=== PATIENT | male | born 1940 | race Caucasian/White ===

== ENCOUNTER 2018-03-14 14:46 | Inpatient (IN) | payer MEDICARE, OTHER ==
[2018-03-14] MEDS ORDERED: SUCRALFATE 1 GM/10 ML 1 GM UD PO ONE (15:07)
[2018-03-14] MEDS ORDERED: THIAMINE HCL 100 MG TAB PO ONE (15:27)
[2018-03-14] MEDS ORDERED: FOLIC ACID 1 MG TAB ONE (15:27)
--- NOTE | 2018-03-14 15:33 | RAD ---
EXAM DESCRIPTION: Chest,1 View CLINICAL HISTORY: wt loss abn COMPARISON: November 20, 2012 IMPRESSION: Single AP portable upright view of the chest shows mild enlargement of the cardiac silhouette with left ventricular contour. No pulmonary vascular congestion. There has been interval sternotomy with interval placement of left subclavian dual-lead transvenous cardiac pacer defibrillator. Lungs are normally aerated and clear. No obvious pleural effusion or pneumothorax is seen. Electronically signed by: Vaibhav Early MD 03/14/2018 3:32 PM CDT
[2018-03-14] MEDS: THIAMINE HCL 100 MG TAB PO ONE (15:34)
[2018-03-14] MEDS: FOLIC ACID 1 MG TAB PO ONE (15:34)
[2018-03-14] MEDS ORDERED: POTASSIUM CHLORIDE ELIXIR 20 MEQ/15 ML UD PO ONE (15:52)
[2018-03-14] MEDS ORDERED: POTASSIUM CHLORIDE INJ 40 MEQ 40 MEQ in SODIUM CHLORIDE 0.9% 250ML 250 ML IVPB ONE (15:53)
[2018-03-14] MEDS ORDERED: SODIUM CHLORIDE 0.9% 250ML 250 ML ONE (15:56)
[2018-03-14] MEDS ORDERED: POTASSIUM CHLORIDE 40mEq 20ML VIAL ONE (15:56)
[2018-03-14] MEDS ORDERED: MAGNESIUM SULFATE PREMIX 2GM 2 GM in PREMIX BAG 1 BAG IVPB ONE (16:12)
[2018-03-14] MEDS ORDERED: MAGNESIUM SULFATE PREMIX 2GM 50 ML IVPB ONE (16:25)
[2018-03-14] MEDS ORDERED: cefTRIAXone SODIUM 1 GM in SODIUM CHL 0.9% 50ML MIN-BAG+ 50 ML IVPB ONE (17:50)
[2018-03-14] MEDS ORDERED: cefTRIAXone SODIUM 1 GM VIAL ONE (18:01)
[2018-03-14] MEDS ORDERED: SODIUM CHL 0.9% 50ML MIN-BAG+ 50 ML IVPB ONE (18:02)
--- NOTE | 2018-03-14 18:09 | CT ---
PROCEDURE: Head HISTORY: confusion, falls, weakness, wt loss abn Indication: Same as above Comparison: None Technique: CT of the head was done without intravenous contrast was done in the orthogonal planes. This exam was performed according to our departmental dose-optimization program, which includes automated exposure control, adjustment of the mA and/or KV according to the patient's size and/or use of iterative reconstruction technique. FINDINGS: There is no intracranial hemorrhage, midline shift mass effect or acute focal infarct. There is prominence of the sylvian fissures and the cortical sulci reflecting age related volume loss. There is periventricular and deep white matter low attenuation, most likely related to small vessel white matter ischemic disease. If clinical concern exists regarding an acute ischemic/vascular pathology being responsible for patient's symptomatology, an MRI of the brain is more sensitive than the current study, in ruling out such a possibility. There is good ruiz/white matter differentiation. The ventricular system is normal. The mastoid air cells are unremarkable . The paranasal sinuses are unremarkable . There is no visualization of acute fractures involving the calvarium or the skull base. IMPRESSION: There is no acute intracranial abnormality. Age related and chronic involutional changes are seen. Electronically signed by: Jermaine Feng MD 03/14/2018 6:07 PM CDT Workstation: [id number]
--- NOTE | 2018-03-14 18:13 | CT ---
PROCEDURE: Lumbar Spine HISTORY: back pain Indication: Fall and back pain Comparison: None Technique: CT of the lumbar spine was done without intravenous contrast in the axial, sagittal and coronal planes. This exam was performed according to our departmental dose-optimization program, which includes automated exposure control, adjustment of the mA and/or KV according to the patient's size and/or use of iterative reconstruction technique. FINDINGS: There is no CT evidence of acute lumbar spinal fractures or dislocations. There is also evidence of moderate amount of multilevel degenerative change, including osteophyte formation, vacuum disc phenomena, reduction in the intervertebral disc spaces, endplate degenerative changes and facet arthropathy. A levoscoliotic curvature of the lumbar spine is noted There is limited evaluation for acute or chronic intervertebral disc herniations or protrusions given the limitation of lack of intrathecal contrast. The prevertebral and the paravertebral soft tissues appear unremarkable. Surgical rodolfo are seen in the right paravertebral region and in the right renal region There is no gross evidence of epidural hematoma or paraspinal soft tissue fluid collections. The remainder of the visualized surrounding subcutaneous soft tissues and muscle structures are grossly unremarkable. The sagittal reconstructed images demonstrate normal alignment The coronal reconstructed images demonstrate normal alignment. IMPRESSION: Negative for acute lumbar spine bony trauma. Significant multilevel degenerative changes seen in the lumbar spine Electronically signed by: Jermaine Feng MD 03/14/2018 6:12 PM CDT Workstation: [id number]
--- NOTE | 2018-03-14 18:15 | CT ---
PROCEDURE: Thoracic Spine Clinical History: back pain Indication: Trauma and back pain Comparison: CT of the lumbar spine done concurrently Technique: CT of the thoracic spine was done without intravenous contrast in the axial, sagittal and coronal planes. This exam was performed according to our departmental dose-optimization program, which includes automated exposure control, adjustment of the mA and/or KV according to the patient's size and/or use of iterative reconstruction technique. Findings: There is no CT evidence of acute thoracic spinal fractures or dislocations. There is also evidence of moderate amount of multilevel degenerative change, including osteophyte formation, reduction in the intervertebral disc spaces, endplate degenerative changes and facet arthropathy. The costovertebral junctions are intact . The visualized lung de leon are unremarkable . The sagittal reconstructed images demonstrate normal alignment The coronal reconstructed images demonstrate normal alignment. There is limited evaluation for acute or chronic intervertebral disc herniation or protrusions given the limitation of lack of intrathecal contrast. The prevertebral and the paravertebral soft tissues appear unremarkable. There is no gross evidence of epidural hematoma or paraspinal soft tissue fluid collections. The remainder of the visualized surrounding subcutaneous soft tissues and muscle structures are grossly unremarkable. Impression: Negative for acute thoracic spine bony trauma Multilevel degenerative changes seen in the thoracic spine Electronically signed by: Jermaine Feng MD 03/14/2018 6:14 PM CDT Workstation: [id number]
--- NOTE | 2018-03-14 18:33 | ED.PDOC ---
History of Present Illness - General Chief Complaint: General Time Seen by Provider: 03/14/18 14:52 Source: patient Exam Limitations: no limitations - History of Present Illness Initial Comments: The patient is a 77-year-old male presenting to the emergency room secondary to progressive weight loss over the last 3 months to total approximately 40 pounds according to him. He has also been getting significantly weaker over the last week and had a couple of falls over the last few days. Additionally he has been having some mild dysuria over the last 3 days. He does have a significant cardiac history and has had a partial nephrectomy in the very distant past. He is pleasant and cooperative but mentation does appear to be a little bit slow. He does have a mild intention tremor. He has apparently a daily drinker. He denies any fevers. No syncope but questionable near syncope. No focal neurological changes. He does see a bedspread folder in [place]. No chest pain and no shortness of breath. No swelling.he does report poor intake of food secondary to just not being hungry. He reports that over the last couple of weeks he has been having some burning in his stomach when he would try to eat or drink alcohol.he does have bruising over his sacrum and bruising over his mid thoracic spine from a fall backwards a couple of days ago. No obvious step-off or deformity otherwise. There is only a mild abrasion over those areas. No deep ulceration at those sites.. Timing/Duration: unsure Severity: moderate Improving Factors: nothing Worsening Factors: movement Associated Symptoms: loss of appetite, malaise, weakness Allergies/Adverse Reactions: Allergies NO KNOWN ALLERGY Allergy (Unverified 11/20/12 20:35) Review of Systems - Review of Systems Constitutional: States: malaise, weakness - generalized EENTM: States: no symptoms reported Respiratory: States: no symptoms reported Cardiology: States: no symptoms reported Gastrointestinal/Abdominal: States: no symptoms reported Genitourinary: States: dysuria, frequency Musculoskeletal: States: back pain - from the fall Skin: States: see HPI Neurological: States: tremors, weakness - generalized Endocrine: States: unexplained weight loss All other Systems: No Change from Baseline Past Medical History (General) - Patient Medical History Hx of COPD: Yes Hx Pacemaker: Yes Hx Hypertension: Yes Surgical History: appendectomy, coronary bypass surgery, other - Vaccination History Hx Tetanus, Diphtheria Vaccination: - allergic Family Medical History - Family History Mother Family History: No Known Physical Exam - Physical Exam General Appearance: Alert, No apparent distress Eye Exam: bilateral normal Ears, Nose, Throat: hearing grossly normal, normal ENT inspection, normal pharynx Neck: full range of motion, supple Respiratory: lungs clear, normal breath sounds, no respiratory distress, no accessory muscle use Cardiovascular/Chest: normal peripheral pulses, no edema, other - regular rate Peripheral Pulses: radial,right: 2+, radial,left: 2+, dorsalis pedis,right: 2+, dorsalis pedis,left: 2+ Gastrointestinal/Abdominal: non tender, soft Rectal Exam: deferred, other - bruising is apparent over the sacrum from the fall Back Exam: other - bruising is apparent over the spinous processes of T5-T8 Extremity: normal range of motion, non-tender, no pedal edema, no calf tenderness, normal capillary refill 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, alert, oriented x 3 - flat affect, other - he does have something of an intention tremor Skin Exam: normal color Comments: Vital Signs - 24 hr 03/14/18 03/14/18 03/14/18 14:47 14:48 17:05 Temperature 97.7 F 97.7 F Pulse Rate [ 59 L 59 L 60 left brachial] Respiratory 20 20 18 Rate Blood Pressure 141/93 132/68 [left brachial] O2 Sat by Pulse 99 99 99 Oximetry 03/14/18 03/14/18 17:10 17:17 Temperature Pulse Rate [ 60 60 left brachial] Respiratory 20 18 Rate Blood Pressure 123/63 138/68 [left brachial] O2 Sat by Pulse 99 100 Oximetry Progress - Progress Progress: 03/14/18 18:38 the patient is a 77-year-old male presenting to the emergency room secondary to progressive deterioration over the last 3 months at least. The patient has bruising over his back and pain from the fall but does not appear to have any significant fractures based on imaging. Head CT is negative for any cause for recurrent falling. The patient does have acute renal failure as demonstrated by laboratory work likely contributed to by the hydrochlorothiazide. He will need gentle rehydration for this. He does have significant hypokalemia and hypomagnesemia that are likely symptomatic for him at this point. He has received his first doses of both. He will need reevaluation in the morning once electrolytes are corrected to see how functional he is getting around. The patient does have an elevated MCV and mild anemia. He would likely benefit from testing for B12 and folate deficiency. The patient has been given a dose of folic acid and thiamine here. He does drink on a daily basis and he does need to be monitored for any withdrawal symptoms. He does have a markedly elevated BNP however in light of the acute renal failure that is difficult to interpret. At this point there are no definitive signs of a CHF exacerbation with this patient clinically, unless the weakness were attributed to that. certainly alcohol intake is not helping with hiscardiac function in the long-term. His blood pressure should be controlled. He will likely be able to follow-up with his bedspread folder as an outpatient once he is discharged from here for his acute problems. He does have urinary tract infection and is being started on Rocephin. urine culture is being performed. Once his electrolytes are little more stabilized, ciprofloxacin can be started. - Results/Orders Results/Orders: chest x-ray shows very mild cardiomegaly but no obvious fluid overload. No significant infiltrates or mass. CT scan of the thoracic and lumbar spine show no evidence of any fracture or acute injury though there are chronic degenerative changes. cT scan of the head shows no evidence of any stroke, mass effect, hydrocephalus or hemorrhage. There are chronic senescent changes. 03/14/18 15:15 EKG STAT EKG shows a paced ventricular rhythm at 60 bpm. There is some left axis deviation. There is mild widening of QRS complex of course. Difficult to interpret otherwise. 03/14/18 15:20 BLOOD CULTURE Stat 03/14/18 16:35 URINE CULTURE W/COLONY COUNT Stat Laboratory Results - last 24 hr 03/14/18 03/14/18 03/14/18 15:20 15:20 15:20 WBC 6.0 RBC 3.26 L Hgb 12.0 L Hct 34.9 L MCV 106.9 H MCH 36.8 H MCHC 34.5 RDW 15.1 H Plt Count 103 L MPV 8.9 Absolute Neuts (auto) 3.60 Absolute Lymphs (auto) 1.70 Absolute Monos (auto) 0.60 Absolute Eos (auto) 0.00 Absolute Basos (auto) 0.00 Neutrophils % 60.0 Lymphocytes % 28.3 Monocytes % 10.4 H Eosinophils % 0.7 L Basophils % 0.6 PT 12.8 H INR 1.100 PTT (SP) 31.6 Sodium 138 Potassium 2.4 L* Chloride 94 L Carbon Dioxide 30 Anion Gap 16.4 BUN 25 H Creatinine 1.93 H BUN/Creatinine Ratio 13.0 Random Glucose 102 Serum Osmolality 280.3 Lactic Acid Calcium 9.5 Magnesium 1.3 L Total Bilirubin 1.7 H AST 62 H ALT 43 Alkaline Phosphatase 102 LD Total 140 Creatine Kinase 39 CK-MB (CK-2) 0.7 CK-MB (CK-2) % Not Reportable Troponin I 0.02 B-Natriuretic Peptide > 5000.0 H* Serum Total Protein 7.6 Albumin 3.9 Globulin 3.7 H Albumin/Globulin Ratio 1.1 Amylase 47 Lipase 34 Total PSA TSH 0.87 Urine Color Urine Appearance Urine pH Ur Specific Gorman Urine Protein Urine Glucose (UA) Urine Ketones Urine Blood Urine Nitrite Urine Bilirubin Urine Urobilinogen Ur Leukocyte Esterase Urine RBC Urine WBC Ur Epithelial Cells Amorphous Sediment Urine Bacteria 03/14/18 03/14/18 03/14/18 15:20 15:20 15:20 WBC RBC Hgb Hct MCV MCH MCHC RDW Plt Count MPV Absolute Neuts (auto) Absolute Lymphs (auto) Absolute Monos (auto) Absolute Eos (auto) Absolute Basos (auto) Neutrophils % Lymphocytes % Monocytes % Eosinophils % Basophils % PT INR PTT (SP) Sodium Potassium Chloride Carbon Dioxide Anion Gap BUN Creatinine BUN/Creatinine Ratio Random Glucose Serum Osmolality Lactic Acid 1.7 Calcium Magnesium Total Bilirubin AST ALT Alkaline Phosphatase LD Total Creatine Kinase CK-MB (CK-2) CK-MB (CK-2) % Troponin I B-Natriuretic Peptide Serum Total Protein Albumin Globulin Albumin/Globulin Ratio Amylase Lipase Total PSA Cancelled 1.56 TSH Urine Color Urine Appearance Urine pH Ur Specific Gorman Urine Protein Urine Glucose (UA) Urine Ketones Urine Blood Urine Nitrite Urine Bilirubin Urine Urobilinogen Ur Leukocyte Esterase Urine RBC Urine WBC Ur Epithelial Cells Amorphous Sediment Urine Bacteria 03/14/18 16:35 WBC RBC Hgb Hct MCV MCH MCHC RDW Plt Count MPV Absolute Neuts (auto) Absolute Lymphs (auto) Absolute Monos (auto) Absolute Eos (auto) Absolute Basos (auto) Neutrophils % Lymphocytes % Monocytes % Eosinophils % Basophils % PT INR PTT (SP) Sodium Potassium Chloride Carbon Dioxide Anion Gap BUN Creatinine BUN/Creatinine Ratio Random Glucose Serum Osmolality Lactic Acid Calcium Magnesium Total Bilirubin AST ALT Alkaline Phosphatase LD Total Creatine Kinase CK-MB (CK-2) CK-MB (CK-2) % Troponin I B-Natriuretic Peptide Serum Total Protein Albumin Globulin Albumin/Globulin Ratio Amylase Lipase Total PSA TSH Urine Color Jessica Urine Appearance Sl cloudy Urine pH 7.5 Ur Specific Gorman 1.015 Urine Protein 30 Urine Glucose (UA) Negative Urine Ketones 15 H Urine Blood Negative Urine Nitrite Negative Urine Bilirubin Moderate Urine Urobilinogen >= 8.0 H Ur Leukocyte Esterase Trace H Urine RBC 1-3 Urine WBC 30-40 H Ur Epithelial Cells 1-3 Amorphous Sediment 2+ Urine Bacteria 1+ Departure - Departure Clinical Impression: Cystitis, Hypokalemia, Hypomagnesemia, Recurrent falls, Alcohol abuse Acute renal failure Qualifiers: Acute renal failure type: unspecified Qualified Code(s): N17.9 - Acute kidney failure, unspecified Disposition: Admit Patient Condition: Fair Decision To Admit - Decistion To Admit Decision to Admit Reason: Medical Nature Decision to Admit Date: 03/14/18 Decision to Admit Time: 18:45
[2018-03-14] MEDS ORDERED: SODIUM CHLORIDE 0.9% 1000ML 500 ML IVS ONE (18:43)
--- NOTE | 2018-03-14 19:26 | HP ---
SUPERVISING PHYSICIAN: Marcellus Frye MD CHIEF COMPLAINT: Weakness with recent fall two days ago. HISTORY OF PRESENT ILLNESS: This is a 77-year-old male patient who lives at [facility]. He presented to the Emergency Room due to progressive weakness that has actually been going on about a year, but has worsened in the last several months. About two days ago, he actually bent forward to pick something up and he fell backwards onto his back. He is unsure if he lost consciousness, but he did not hit his head. He did scrape his lower back and has some back pain due to that fall. He also has lost about 40 pounds in the last three months. He does see Dr. Sanchez Bazzi in [place] as his primary care physician. He has a significant cardiac history with pacemaker insertion several years ago due to atrial fibrillation and he had a coronary artery bypass graft in the distant past. He had no complaints of chest pain or shortness of breath. He also has complaints of some dysuria and he does have a history of a partial nephrectomy in the past. There were also some complaints of some burning in his stomach, especially with eating or drinking. He also said his appetite has been very pour over the last four to five months. He does drink two to three alcoholic beverages a day. In the Emergency Room, he was evaluated and found to have a normal white count at 6 with a hemoglobin of 12 and hematocrit of 34.9. PT 12.8, INR 12.1, PT-T 31.6. Sodium 138, potassium 2.4, chloride 94, carbon dioxide 30, BUN 25, creatinine 1.93. His normal creatinine is about 1. Lactic acid 1.7, magnesium 1.3, calcium 9.5, total bilirubin 6.7, AST 62. His other liver enzymes were within normal limits. Cardiac enzymes were within normal limits. BNP was greater than 5000. He denies any history of congestive heart failure. Amylase 47, lipase 34. PSA 1.56 and TSH 0.87 His urinalysis was positive for urinary tract infection with 15 urine ketones, greater than 8 urine urobilinogen, trace urine leukocyte esterase and 30 to 40 WBCs. He was given fluids in the Emergency Room as well as some magnesium and potassium replacement. He was also started on Rocephin. Prior to his antibiotics, urine culture and blood cultures were done. He was given a dose of folic acid and thiamine. He was also given a dose of Carafate. Chest x-ray showed mild enlargement of the cardiac silhouette , no pulmonary vascular congestion. Head CT showed no acute intracranial abnormality with age-related and chronic involutional changes. His lumbar spine CT was negative for acute lumbar spine bony trauma. His thoracic spine CT was negative for acute thoracic spine bony fracture. I was called for admission to the hospital. PAST MEDICAL HISTORY: 1. Hypertension. 2. Coronary artery disease. 3. Atrial fibrillation. 4. Hypothyroidism. 5. Chronic obstructive pulmonary disease. 6. Gastroesophageal reflux disease. PAST SURGICAL HISTORY: 1. Pacemaker insertion. 2. Coronary artery bypass graft. 3. Partial nephrectomy. 4. Appendectomy. 5. Tonsillectomy. OUTPATIENT MEDICATIONS: Awaiting verification. ALLERGIES: TETANUS. FAMILY HISTORY: Unknown. SOCIAL HISTORY: He lives at [facility]. He has four children and one step- child. He has a very distant history of smoking tobacco. He does drink two to three alcoholic beverages daily. There is no history of illicit drug use. REVIEW OF SYSTEMS: GENERAL: Positive for weakness, weight loss, malaise. HEENT: Negative for sinus symptoms, ear pain, vision changes or sore throat. RESPIRATORY: Negative for wheezing, coughing or shortness of breath. CARDIAC: Negative for chest pain, palpitations or tachycardia. GASTROINTESTINAL: Poor food intake as well as generalized stomach pain and burning. No nausea or vomiting. GENITOURINARY: Positive for dysuria, polyuria. Negative for hematuria. MUSCULOSKELETAL: Positive for back pain and hip pain from his fall. SKIN: Positive for abrasions to the sacrum. NEUROLOGIC: Positive for tremors, weakness and questionable syncope. ENDOCRINE: Positive for unexplained weight loss of 40 pounds in three months. PHYSICAL EXAMINATION: VITAL SIGNS: Afebrile. Heart rate 60. Blood pressure 140/64. Respiratory rate 16. O2 saturation 97% on room air. GENERAL: This is a 77-year-old male patient who is lying in his hospital bed. He is no acute distress. HEENT: Normocephalic, atraumatic. Pupils are equal and reactive. Oropharynx is clear. NECK: Supple without mass. No discernible jugular venous distention. RESPIRATORY: Essentially clear to auscultation bilaterally. CHEST: There is equal rise and fall of the chest with inspiration and expiration. CARDIOVASCULAR: Regular rate and rhythm. 100% paced rhythm on the nuclear monitoring technician. GASTROINTESTINAL: Abdomen is soft, nondistended. Mild diffuse tenderness. Bowel sounds are positive. EXTREMITIES: No cyanosis, clubbing or edema. Bilateral pedal pulses are +2. SKIN: He has some bruising and some mild abrasions over the sacral area as well as along the thoracic spine. NEUROLOGIC: Awake, alert and oriented times three. LABORATORY: Labs and films are as per history of present illness. IMPRESSION: 1. Acute renal failure with creatinine 1.93. His baseline creatinine is 0.9 to 1. 2. Urinary tract infection. 3. Electrolyte imbalance, mainly hypomagnesemia and hypokalemia. 4. Dehydration. 5. Altered mental status. 6. Gastritis. 7. Unknown weight loss of 40 pounds in three months. 8. ETOH abuse. 9. History of atrial fibrillation with pacemaker. 10. Coronary artery disease. 11. Chronic obstructive pulmonary disease. 12. Recent same-level fall with questionable loss of consciousness. Bruising and abrasions on the sacrum. PLAN: We will admit the patient to the hospital. I will give him fluids overnight. Recheck his lab in the morning including magnesium and B12. I have given him a proton pump inhibitor for ulcer prophylaxis as well as some Carafate. Lovenox for DVT prophylaxis. We will do neuro checks q.4h. We will have p.r.n. breathing treatments. I will continue the Rocephin and follow his cultures as they become available. I will restart his home medications as soon as those are verified. I have given him some Ativan in case of alcohol withdrawal and we will monitor that closely. Otherwise, we will continue to monitor the patient closely and treat appropriately. #[id number] [facility]
[2018-03-14] MEDS ORDERED: SODIUM CHLORIDE 0.9% (FLUSH) 10 ML SYG IV PRN (19:54)
[2018-03-14] MEDS ORDERED: SODIUM CHLORIDE 0.9% 1000ML 1,000 ML IVS PRN (19:57)
[2018-03-14] MEDS ORDERED: ENOXAPARIN SODIUM 40 MG/0.4 ML SYG SUBCU SCH (21:00)
[2018-03-14] MEDS ORDERED: METOPROLOL SUCCINATE XL 25 MG TAB PO SCH (21:00)
[2018-03-14] MEDS ORDERED: LEVALBUTEROL NEBS 1.25 MG/3 ML VIAL NEB PRN (21:28)
[2018-03-14] MEDS: SODIUM CHLORIDE 0.9% (FLUSH) 10 ML SYG IV SCH (21:43)
[2018-03-14] MEDS: IV SET AND CAP CHANGE INJ INJ SCH (21:43)
[2018-03-15] MEDS: PANTOPRAZOLE SODIUM IV 40 MG VIAL IV SCH (06:30)
[2018-03-15] MEDS: SUCRALFATE 1 GM/10 ML 1 GM UD PO SCH ×4 (06:31→21:20)
[2018-03-15] MEDS ORDERED: POTASSIUM CHLORIDE 20 MEQ TAB PO ONE (08:08)
[2018-03-15] MEDS ORDERED: traMADol HCL 50 MG TAB ONE (08:52)
[2018-03-15] MEDS: SODIUM CHLORIDE 0.9% (FLUSH) 10 ML SYG IV SCH ×2 (08:59→21:20)
[2018-03-15] MEDS ORDERED: ALLOPURINOL 300 MG TAB PO SCH (09:00)
[2018-03-15] MEDS ORDERED: MULTIPLE VITAMIN INJ 10 ML, FOLIC ACID INJ 1 MG in SODIUM CHLORIDE 0.9% 1000ML 1,000 ML IVS SCH (09:00)
[2018-03-15] MEDS: traMADol HCL 50 MG TAB PO PRN (09:16)
--- NOTE | 2018-03-15 13:17 | PN ---
SUPERVISING PHYSICIAN: Marcellus Frye MD DATE: 03/15/18 SUBJECTIVE: The patient is lying quietly in bed. He complains of abdominal pain to the epigastric and left upper quadrant area of his abdomen. He denies any nausea, vomiting, chest pain or shortness of breath. He just feels weak and is having a very difficult time sleeping. He has a very flat affect and admits he is depressed but does not know why. OBJECTIVE: VITAL SIGNS: Afebrile. Heart rate 60. Blood pressure 130/76. Respiratory rate 16. O2 saturation 99% on room air. RESPIRATORY: Essentially clear to auscultation bilaterally. CARDIAC: Regular rate and rhythm. 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 GASTROINTESTINAL: Abdomen is soft, nondistended. He is moderately to the epigastric and left upper quadrant areas of his abdomen. EXTREMITIES: No cyanosis, clubbing or edema. NEUROLOGIC: Awake, alert and oriented times three. LABORATORY: WBCs 3.8, hemoglobin 11.6, hematocrit 33.8. Sodium 139, potassium 3.1, chloride 102, carbon dioxide 26, BUN 20, creatinine 1.54, calcium 8.7, magnesium 1.8, bilirubin 1.6, AST 54. Serum total protein 6.3, albumin 3.1. Urine culture pending. Preliminary blood cultures are negative to date. All other labs and films have been reviewed via the EMR. ASSESSMENT: 1. Acute renal failure with creatinine on admission of 1.93. His baseline creatinine is 0.9 to 1. Creatinine today is 1.54. 2. Urinary tract infection, awaiting culture results. 3. Electrolyte imbalance, improved. He still is slightly hypokalemic. 4. Dehydration, improved with IV fluids. 5. Altered mental status. 6. Gastritis. 7. Unknown weight loss of 40 pounds in three months. 8. ETOH abuse. 9. History of atrial fibrillation with pacemaker. 10. Coronary artery disease. 11. Chronic obstructive pulmonary disease. 12. Recent same-level fall with questionable loss of consciousness. Bruising and abrasions on the sacrum. 13. Depression. PLAN: We will continue present supportive care. I have given him some oral potassium replacement. We will discontinue his IV fluids after the present bag. He had some complaints of pain earlier and we ordered tramadol. I have also done a daily folic acid and thiamine, as well as Celexa for depression. I will repeat his lab in the morning. Due to his weight loss and the abdominal pain, I am going to do a CT of the chest, abdomen and pelvis tomorrow morning. He will be NPO at midnight except for medications. I am also adding Restoril for insomnia. He will need close followup with his primary care physician, Dr. Sanchez Bazzi in [place]. He previous had [facility] and he has agreed he will use [facility] on discharge. I have also ordered physical therapy consult to evaluate for safety. We will continue to monitor the patient closely and follow as needed. Dr. Frye is the collaborating physician and available for consultation. #[id number] [facility]
[2018-03-15] MEDS ORDERED: SODIUM CHL 0.9% 50ML MIN-BAG+ 50 ML IVPB ONE (14:07)
[2018-03-15] MEDS ORDERED: cefTRIAXone SODIUM 1 GM VIAL ONE (14:08)
[2018-03-15] MEDS: THIAMINE HCL 100 MG TAB PO ONE (14:23)
[2018-03-15] MEDS: FOLIC ACID 1 MG TAB PO ONE (14:23)
[2018-03-15] MEDS: CITALOPRAM HBR 20 MG TAB PO SCH (14:24)
[2018-03-15] MEDS ORDERED: cefTRIAXone SODIUM 1 GM in SODIUM CHL 0.9% 50ML MIN-BAG+ 50 ML IVPB SCH (15:00)
[2018-03-15] MEDS: TEMAZEPAM 15 MG CAP PO PRN (21:34)
[2018-03-16] MEDS: PANTOPRAZOLE SODIUM IV 40 MG VIAL IV SCH (06:14)
[2018-03-16] MEDS: SUCRALFATE 1 GM/10 ML 1 GM UD PO SCH ×4 (06:36→21:16)
--- NOTE | 2018-03-16 09:40 | CT ---
EXAM DESCRIPTION: CHEST WITH CONTRAST CT ABDOMEN AND PELVIS WITHOUT AND WITH CONTRAST CLINICAL HISTORY: 77 years, Male, wt loss COMPARISON: Previous CT abdomen October 16, [address] chest June 25, 2017 TECHNIQUE: Thin-section noncontrast axial CT images of the chest, abdomen and pelvis are obtained according to our protocol. Reconstructed MPR images are created and reviewed as well. For the postcontrast images, routine adult dose of nonionic iodinated contrast was administered intravenously. FINDINGS: CT chest Lungs: No consolidating pulmonary infiltrate or groundglass infiltrate. Moderate subpleural fibrotic changes are seen in both lungs with denser area near the upper right major fissure extending anteriorly along the minor fissure suggesting pleural scarring. This is triangular in shape to linear in shape and not thought likely to represent a malignant process. The same findings were present previously on CT of the chest June 25, 2017 suggesting a chronic process No worrisome pulmonary mass or nodule. Coronal reformatted lung window images confirm chronic-appearing pulmonary and pleural fibrotic changes. Pulmonary fibrosis can be idiopathic or may be related to connective tissue diseases (scleroderma, mixed connective tissue disease or rheumatoid arthritis) or pneumoconiosis (asbestosis). Clinical correlation recommended. Mediastinum: Lymph nodes are normal in size. Previous median sternotomy. Normal vascular contours. Heart size is large with no pericardial effusion. There is extensive coronary arterial calcification. Cardiac pacer is in place. No significant arthritic changes in the shoulders. No esophageal dilatation. The heart is quite large. Aorta is calcified without focal aneurysm or dissection. Normal enhancement of pulmonary arteries. Chest wall/axilla: No mass or adenopathy. Lower neck/supraclavicular: No mass or adenopathy. CT abdomen Precontrast images show unremarkable appearance of the liver, spleen, pancreas, adrenal glands and left kidney. Surgical changes or coils in the right kidney with central scarring. After IV contrast, there is normal enhancement of the liver and spleen and pancreas. Mild thinning of the left renal cortex is seen which otherwise enhances normally. Scarring in the midportion of the right kidney is noted. Other areas show normal cortical enhancement. Normal left adrenal gland. Right adrenal gland appears nodular. Small rim calcified mass medial to the upper pole the right kidney may be related to previous surgery. This appears benign. Compared to previous studies, no change is seen here. Surgical clips are seen behind the inferior vena cava. Stomach wall thickness is prominent thought to be due to incomplete distention. CT pelvis Precontrast images through the pelvis show no stones in the distal ureters or bladder. Prostate is mildly prominent with some internal calcification. No inguinal or lower pelvic adenopathy. No inflammation around the sigmoid colon or cecum or terminal ileum. After IV contrast there is normal enhancement of the pelvic vessels. No abnormal enhancement of the prostate or bladder wall. Bladder wall thickness is mildly prominent. No inflammation around the rectum or sigmoid colon. The appendix is not identified. No inflammation around the right colon or terminal ileum. Coronal and sagittal reformatted images show advanced degenerative changes of the lower lumbar spine with neural foraminal narrowing. Coronal images show mild degenerative levoscoliosis of the lower thoracic and lumbar spine. Lucency in the right femoral neck is noted, indeterminate. No rim sclerosis to suggest benign nature. This measures 1.4 cm on the axial images, unchanged compared to previous study in October 2017. Patient also had an earlier CT of the abdomen July 18, 2012. Similar lucency was seen in the right femur at that time. Without private branch exchange service advisor this period, benign lesion is thought most likely. IMPRESSION: CT chest Pleural and pulmonary fibrotic changes. No acute process. CT abdomen No acute upper abdominal process. Surgical changes of the right kidney. CT pelvis No acute pelvic process. This exam was performed according to our departmental dose-optimization program, which includes automated exposure control, adjustment of the mA and/or kV according to patient size and/or use of iterative reconstruction technique. Total DLP equals 3324.24 mGycm. Electronically signed by: Fabian Feliciano MD 03/16/2018 9:39 AM CDT
[2018-03-16] MEDS: SODIUM CHLORIDE 0.9% (FLUSH) 10 ML SYG IV SCH ×2 (09:50→21:16)
[2018-03-16] MEDS: CITALOPRAM HBR 20 MG TAB PO SCH (10:18)
[2018-03-16] MEDS ORDERED: SODIUM CHL 0.9% 50ML MIN-BAG+ 50 ML IVPB ONE ×2 (14:12→21:57)
[2018-03-16] MEDS ORDERED: CEFEPIME 2 GM VIAL IVPB ONE ×2 (14:12→21:57)
[2018-03-16] MEDS ORDERED: THIAMINE HCL INJ 100 MG/ML VIAL ONE (14:12)
[2018-03-16] MEDS ORDERED: SODIUM CHLORIDE 0.9% 1000ML 1,000 ML ONE (14:12)
[2018-03-16] MEDS ORDERED: MULTIPLE VITAMIN 10 ML VIAL ONE (14:13)
[2018-03-16] MEDS: CEFEPIME 2 GM in SODIUM CHL 0.9% 50ML MIN-BAG+ 50 ML IVPB SCH (14:23)
[2018-03-16] MEDS: FOLIC ACID 1 MG TAB PO SCH (14:29)
[2018-03-16] MEDS: MULTIPLE VITAMIN INJ 10 ML, THIAMINE HCL INJ 100 MG in SODIUM CHLORIDE 0.9% 1000ML 1,00... IVS SCH (14:55)
--- NOTE | 2018-03-16 23:05 | PN ---
DATE: 03/16/18 SUPERVISING PHYSICIAN: Marcellus Frye M.D. SUBJECTIVE: The patient is resting in bed. He appears to be comfortable. Notes that he is still having some back pain but denies any additional abdominal pains. He has not had any nausea or vomiting or diarrhea through the night. OBJECTIVE: VITAL SIGNS: temperature 97.8, pulse 59, blood pressure 155/68, respirations 18, satting 96% on room air. I's and O's show a balance of 120 positive with 820 in, 700 out. He has had 1 bowel movement. Weight is 70.5 kg. CHEST: Lungs were clear to auscultation bilaterally. HEART: Regular rate and rhythm. ABDOMEN: Soft, non-tender. Positive bowel sounds. EXTREMITIES: No clubbing, cyanosis or edema. NEUROLOGIC: He is alert and oriented times three. LABORATORY: White count 4,800, hemoglobin 11,600, hematocrit 33.9, platelet count 73,000. RBC indices indicate a macrocytic/hyperchromic presentation. Chemistries show a persistent hypokalemia but improved. It is up to 3.5. Creatinine is down to 1.34, BUN 17, calcium 8.8, magnesium is down again at 1.6. AST is improving, it is down to 51, ALT and alkaline phosphatase are both normal. MICROBIOLOGY: Urine culture is pending. He has 1 positive blood culture, aerobic bottle that showed gram variable coccobacilli. All other bottles remain negative at 48 hours. RADIOLOGY: Abdominal/pelvis CT with contrast per radiology interpretation showed pleural and pulmonary fibrotic changes. No acute process. No acute abdominal process noted. Post surgical changes of the right kidney. CT of the pelvis shows no pelvic process. CT of the chest again showed pleural and pulmonary fibrotic changes. No acute process. ASSESSMENT: 1. Acute renal failure with creatinine of 1.93 on admission with a baseline creatinine noted to be between 0.9 and 1 with improving creatinine level felt to be secondary to prerenal azotemic state from dehydration, improved with fluids. 2. Urinary tract infection with culture results continuing to be pending. 3. Gram negative coccobacilli bacteremia with final cultures pending with the patient showing to be clinically stable on current antibiotic regimen. 4. Electrolyte imbalance with hypokalemia showing improvement with replacement. 5. Dehydration, improved with IV fluids. 6. Altered mental status secondary to underlying worsening renal function exacerbated by the urinary tract infection, improving with treatment. 7. Gastritis secondary to chronic alcohol abuse. 8. Unintentional weight loss of 40 pounds in the last 3 months, uncertain etiology with no acute findings on CT of the chest, abdomen and pelvis. 9. Chronic alcohol abuse. 10. History of atrial fibrillation with pacemaker. 11. Coronary artery disease. 12. Chronic obstructive pulmonary disease with no current exacerbation. 13. Recent same-level fall with questionable loss of consciousness with multiple bruises and abrasions on the sacrum with no acute findings on CT or radiographic studies. 14. Depression. PLAN: Will continue with antibiotics today, but given the positive blood culture with the patient showing clinically to be stable, will add Cefepime and drop the Rocephin, and await those final blood culture results. Will continue with an additional 24 to 48 hours of hospitalization given the positive blood cultures and bacteremia awaiting those final culture results. As soon as those results are available we can target antibiotic therapy and further determine treatment course. I will go ahead and start him on a banana bag with thiamine today as well as posterior folic acid. He has been up with Physical Therapy with recommendations for home health physical therapy once discharged which is to be arranged through [facility]. As soon as the cultures are available, will need to again target antibiotic therapy accordingly. Hopefully will be able to discharge the patient as he does remain clinically stable. Until discharge, will continue to monitor and treat appropriately. #[id number] [facility]
[2018-03-17] MEDS: CEFEPIME 2 GM in SODIUM CHL 0.9% 50ML MIN-BAG+ 50 ML IVPB SCH ×2 (01:48→13:43)
[2018-03-17] MEDS: PANTOPRAZOLE SODIUM IV 40 MG VIAL IV SCH (06:36)
[2018-03-17] MEDS: SUCRALFATE 1 GM/10 ML 1 GM UD PO SCH ×4 (06:37→20:39)
[2018-03-17] MEDS: FOLIC ACID 1 MG TAB PO SCH (09:10)
[2018-03-17] MEDS: traMADol HCL 50 MG TAB PO PRN ×2 (09:11→18:36)
[2018-03-17] MEDS: CITALOPRAM HBR 20 MG TAB PO SCH (09:11)
[2018-03-17] MEDS: SODIUM CHLORIDE 0.9% (FLUSH) 10 ML SYG IV SCH ×2 (09:12→21:41)
[2018-03-17] MEDS ORDERED: POTASSIUM CHLORIDE 20 MEQ TAB PO SCH (09:30)
[2018-03-17] MEDS ORDERED: MAGNESIUM SULFATE PREMIX 2GM 2 GM in PREMIX BAG 1 BAG IVPB SCH (09:30)
[2018-03-17] MEDS ORDERED: MAGNESIUM SULFATE PREMIX 2GM 50 ML IVPB ONE (09:59)
[2018-03-17] MEDS ORDERED: LEVOTHYROXINE SODIUM 0.1 MG TAB ONE (10:41)
[2018-03-17] MEDS: LEVOTHYROXINE SODIUM 0.1 MG TAB PO SCH (11:22)
[2018-03-17] MEDS: METOPROLOL TARTRATE 25 MG TAB PO SCH ×2 (11:22→20:39)
[2018-03-17] MEDS ORDERED: BRINZOLAMIDE 1% OPHTH SCH (12:00)
[2018-03-17] MEDS ORDERED: OPTH OPHTH SCH (12:00)
--- NOTE | 2018-03-17 12:10 | PCM.CORE ---
Physician DVT/VTE - Nurse DVT Assessment & Total Each Risk Factor Represents 3 Points: Age over 75 years, Medical PT with Hx of UT, CHF, Severe infection/sepsis Each Risk Factor Represents 1 Point: Medical PT at Bed Rest Each Risk Factor is 1 Point: Serious Lung disease (pnemonia <1month, COPD, emphysema,etc) DVT Assessment Score: 8 - 5 or more Very High Risk Treatments: Early Ambulation *, Sequential Compression Device Pharmacological: Enoxaparin 40mg SQ Daily
[2018-03-17] MEDS: BRINZOLAMIDE BRIMONIDINE TARTR OPHTH SCH ×2 (12:23→15:56)
[2018-03-17] MEDS ORDERED: SODIUM CHLORIDE 0.9% 1000ML 1,000 ML ONE (13:27)
[2018-03-17] MEDS ORDERED: SODIUM CHL 0.9% 50ML MIN-BAG+ 50 ML IVPB ONE ×2 (13:27→19:56)
[2018-03-17] MEDS ORDERED: THIAMINE HCL INJ 100 MG/ML VIAL ONE (13:28)
[2018-03-17] MEDS ORDERED: CEFEPIME 2 GM VIAL IVPB ONE ×2 (13:28→19:56)
[2018-03-17] MEDS ORDERED: MULTIPLE VITAMIN 10 ML VIAL ONE (13:28)
[2018-03-17] MEDS: ENOXAPARIN SODIUM 40 MG/0.4 ML SYG SUBCU SCH (13:42)
[2018-03-17] MEDS: MULTIPLE VITAMIN INJ 10 ML, THIAMINE HCL INJ 100 MG in SODIUM CHLORIDE 0.9% 1000ML 1,00... IVS SCH (14:18)
[2018-03-17] MEDS: TEMAZEPAM 15 MG CAP PO PRN (20:39)
[2018-03-17] MEDS: NON-FORMULARY MEDICATION 1 EA MIS (Latanoprost 0.005% Ophth [Xalatan 0.005% Ophthalmic Dro BOTH_EYES SCH (20:40)
--- NOTE | 2018-03-17 20:53 | PN ---
DATE: 03/17/18 SUPERVISING PHYSICIAN: Marcellus Frye M.D. SUBJECTIVE: The patient is once again resting in bed. He has again a very flat affect, but notes that he feels good. He is denying any complaints. He has been afebrile. OBJECTIVE: VITAL SIGNS: Temperature 97.8, pulse 64, blood pressure 138/78, respirations 18, satting 96% on room air. I's and O's show a positive balance of 2101 with 2951 in, 850 out. Weight is 70.5 kg. CHEST: Lungs are clear to auscultation. HEART: Regular rate and rhythm. ABDOMEN: Soft, non-tender. Positive bowel sounds. EXTREMITIES: No clubbing, cyanosis or edema. NEUROLOGIC : He is alert and oriented times three. LABORATORY: Chemistries today show persistent low sodium at 3.3, BUN 14, creatinine 1.2, magnesium is down again to 1.4. AST is improving to 46, ALT and alkaline phosphatase are both normal. MICROBIOLOGY: Preliminary urine culture shows gram-negative rods. One of his aerobic bottles did show positive with gram stain showing a gram variable coccobacilli with final culture pending. ASSESSMENT: 1. Acute renal failure on admission with noted creatinine of 1.93 now back to baseline creatinine level more likely secondary to prerenal azotemic state from dehydration and improved with fluids. 2. Urinary tract infection with preliminary culture results showing gram- negative rods. 3. Presumptive bacteremia with a gram negative coccobacilli on one aerobic bottle with the patient showing to continue to be clinically stable on current antibiotic regimen awaiting final culture results. 4. Electrolyte imbalance with persistent hypokalemia requiring replacement probably secondary to persistent hypomagnesemia also requiring ongoing parenteral replacement. 5. Dehydration, improved with fluids. 6. Altered mental status on admission due to underlying renal failure exacerbated by urinary tract infection, improved and back to baseline mental status with treatment. 7. Gastritis secondary to chronic alcohol abuse with no acute signs of complications. 8. Unintentional weight loss of approximately 40 pounds in the last 3 months of uncertain etiology with no acute findings on CT of the chest, abdomen and pelvis probably related to ongoing depression and alcohol abuse and poor nutritional intake. 9. Chronic alcohol abuse with no signs of withdrawals. 10. History of atrial fibrillation with pacemaker showing stable ventricular rate. 11. Coronary artery disease. 12. Chronic obstructive pulmonary disease without any exacerbation noted. 13. Multiple falls same level with no loss of consciousness with no acute findings on CT or radiographic studies. 14. Depression currently on antidepressant. PLAN: Will continue with antibiotic therapy at this point again awaiting final culture results with the antibiotic coverage being currently with Cefepime. Anticipate hopefully being able to discharge tomorrow as the patient is showing to be clinically stable. He continues with a daily banana bag with thiamine as well as folic acid replacement. Again, he has worked with physical therapy with recommendations for home health physical therapy at discharge which has been arranged through [facility]. Once those cultures are available we can target antibiotic therapy accordingly. If the patient remains clinically stable, we will hopefully be able to discharge with continued outpatient management. Until then, he will continue to be monitored and treated appropriately. #[id number] [facility]
[2018-03-17] MEDS: IV SET AND CAP CHANGE INJ INJ SCH (22:43)
[2018-03-18] MEDS: CEFEPIME 2 GM in SODIUM CHL 0.9% 50ML MIN-BAG+ 50 ML IVPB SCH ×2 (01:21→16:06)
[2018-03-18] MEDS: LEVOTHYROXINE SODIUM 0.1 MG TAB PO SCH (05:56)
[2018-03-18] MEDS: BRINZOLAMIDE BRIMONIDINE TARTR OPHTH SCH ×3 (09:42→18:22)
[2018-03-18] MEDS: SUCRALFATE 1 GM/10 ML 1 GM UD PO SCH ×4 (09:42→20:32)
[2018-03-18] MEDS: METOPROLOL TARTRATE 25 MG TAB PO SCH ×2 (09:43→20:32)
[2018-03-18] MEDS: FOLIC ACID 1 MG TAB PO SCH (09:43)
[2018-03-18] MEDS: CITALOPRAM HBR 20 MG TAB PO SCH (09:43)
[2018-03-18] MEDS: SODIUM CHLORIDE 0.9% (FLUSH) 10 ML SYG IV SCH ×2 (09:45→20:33)
[2018-03-18] MEDS ORDERED: SODIUM CHL 0.9% 50ML MIN-BAG+ 50 ML IVPB ONE ×2 (15:46→19:41)
[2018-03-18] MEDS ORDERED: CEFEPIME 2 GM VIAL IVPB ONE ×2 (15:46→19:42)
[2018-03-18] MEDS ORDERED: SODIUM CHLORIDE 0.9% 1000ML 1,000 ML ONE (15:48)
[2018-03-18] MEDS ORDERED: THIAMINE HCL INJ 100 MG/ML VIAL ONE (15:48)
[2018-03-18] MEDS ORDERED: MULTIPLE VITAMIN 10 ML VIAL ONE (15:49)
[2018-03-18] MEDS ORDERED: SODIUM CHLORIDE 0.9% 50ML 50 ML ONE (15:52)
[2018-03-18] MEDS: MULTIPLE VITAMIN INJ 10 ML, THIAMINE HCL INJ 100 MG in SODIUM CHLORIDE 0.9% 1000ML 1,00... IVS SCH (16:07)
[2018-03-18] MEDS: ENOXAPARIN SODIUM 40 MG/0.4 ML SYG SUBCU SCH (16:08)
[2018-03-18] MEDS: traMADol HCL 50 MG TAB PO PRN (16:40)
--- NOTE | 2018-03-18 18:10 | PN ---
DATE: 03/18/18 SUPERVISING PHYSICIAN: Marcellus Frye M.D. SUBJECTIVE: The patient was to be discharged today. His discharge paperwork had mostly been complete, but due to unforeseen circumstances by his family the patient was kept an additional night. According to his daughter, his house was infested with bed bugs and initially they thought to get it sprayed and he could go home, but because of the extent of the infestation they had to remove his furniture and completely strip his house down, and so he will be going home tomorrow. OBJECTIVE: VITAL SIGNS: He is afebrile, heart rate 76, blood pressure 102/68, respiratory rate 16, O2 sat 96%. RESPIRATORY: Essentially clear to auscultation bilaterally. CARDIAC: Regular rate and rhythm. NEUROLOGIC: He is awake, alert and oriented times three. LABORATORY: There are no labs or films to report at this time. ASSESSMENT: 1. Acute renal failure on admission with creatinine of 1.93 now at baseline. 2. Urinary tract infection with his culture showing Proteus mirabilis. He is presently on Cefepime. 3. Presumptive bacteremia with a gram variable bacilli on one of four blood cultures, this one recovered from the aerobic bottle shows bacillus species might be anthresis, susceptibilities not routinely performed and/or clinical and laboratory standards institute has established. No criteria for susceptibilities. 4. Electrolyte imbalance that has improved. 5. Dehydration, improved. 6. Altered mental status, improved. 7. Gastritis secondary to chronic alcohol abuse with no signs or symptoms of complications. 8. Unintentional weight loss of approximately 40 pounds in 3 months of uncertain etiology. No acute findings on CT of the chest, abdomen and pelvis, most likely related to ongoing depression, alcohol abuse and poor nutritional intake. 9. Chronic alcohol abuse with no signs of withdrawals. 10. History of atrial fibrillation with pacemaker that is stable. 11. Coronary artery disease. 12. Chronic obstructive pulmonary disease without any exacerbation noted. 13. Multiple falls same level with no loss of consciousness with no acute findings. 14. Depression recently started on Celexa. PLAN: We will continue present supportive care. I have continued his medications, He will be discharged in the morning. His family is aware that he needs to be discharged by tomorrow. I have continued his Celexa as well as started him on Bactrim DS. He will begin the Bactrim tonight and we have discontinued his Cefepime. Plan on discharging in the morning. #[id number] [facility]
[2018-03-18] MEDS: NON-FORMULARY MEDICATION 1 EA MIS (Latanoprost 0.005% Ophth [Xalatan 0.005% Ophthalmic Dro BOTH_EYES SCH (20:32)
[2018-03-18] MEDS: SULFA/TRIMETH 800/160 (DS) TAB 1 EA TAB PO SCH (20:32)
[2018-03-18] MEDS ORDERED: CEFDINIR 300 MG CAP PO SCH (21:00)
[2018-03-19] MEDS: CEFEPIME 2 GM in SODIUM CHL 0.9% 50ML MIN-BAG+ 50 ML IVPB SCH (01:35)
[2018-03-19] MEDS: LEVOTHYROXINE SODIUM 0.1 MG TAB PO SCH (06:20)
[2018-03-19] MEDS: SUCRALFATE 1 GM/10 ML 1 GM UD PO SCH ×2 (06:30→12:17)
[2018-03-19] MEDS: BRINZOLAMIDE BRIMONIDINE TARTR OPHTH SCH ×3 (08:05→15:25)
[2018-03-19] MEDS: CITALOPRAM HBR 20 MG TAB PO SCH (09:37)
[2018-03-19] MEDS: METOPROLOL TARTRATE 25 MG TAB PO SCH (09:37)
[2018-03-19] MEDS: SULFA/TRIMETH 800/160 (DS) TAB 1 EA TAB PO SCH (09:37)
[2018-03-19] MEDS: FOLIC ACID 1 MG TAB PO SCH (09:37)
[2018-03-19] MEDS: SODIUM CHLORIDE 0.9% (FLUSH) 10 ML SYG IV SCH (09:38)
[2018-03-19] MEDS ORDERED: MAGNESIUM SULFATE PREMIX 2GM 2 GM in PREMIX BAG 1 BAG IVPB ONE (09:48)
[2018-03-19 11:55] VITALS: BP 120/76
[2018-03-19] MEDS ORDERED: MAGNESIUM SULFATE PREMIX 2GM 50 ML IVPB ONE (12:13)
[2018-03-19] MEDS: ENOXAPARIN SODIUM 40 MG/0.4 ML SYG SUBCU SCH (15:25)
[2018-03-19 15:59] VITALS: TEMP 97.2
[2018-03-19 16:27] VITALS: O2SAT 97
--- NOTE | 2018-03-19 22:23 | DS ---
SUPERVISING PHYSICIAN: Marcellus Frye M.D. DISCHARGE DIAGNOSIS: 1. Acute renal failure on admission with creatinine of 1.93 now at baseline. 2. Urinary tract infection with his culture showing Proteus mirabilis. He is presently on Cefepime. 3. Presumptive bacteremia with a gram variable bacilli on one of four blood cultures, this one recovered from the aerobic bottle shows bacillus species might be anthresis, susceptibilities not routinely performed and/or clinical and laboratory standards institute has established. No criteria for susceptibilities. 4. Electrolyte imbalance that has improved. 5. Dehydration, improved. 6. Altered mental status, improved. 7. Gastritis secondary to chronic alcohol abuse with no signs or symptoms of complications. 8. Unintentional weight loss of approximately 40 pounds in 3 months of uncertain etiology. No acute findings on CT of the chest, abdomen and pelvis, most likely related to ongoing depression, alcohol abuse and poor nutritional intake. 9. Chronic alcohol abuse with no signs of withdrawals. 10. History of atrial fibrillation with pacemaker that is stable. 11. Coronary artery disease. 12. Chronic obstructive pulmonary disease without any exacerbation noted. 13. Multiple falls same level with no loss of consciousness with no acute findings. 14. Depression recently started on Celexa. HISTORY OF PRESENT ILLNESS: This is a 77-year-old male patient that lives at [facility]. He presented to the Emergency Room due to progressive weakness that has actually been going on about a year, but had worsened in the last several months. About two days ago, he actually bent forward to pick something up and he fell backwards onto his back. He is unsure if he lost consciousness, but he did not hit his head. He did scrape his lower back and has some back pain due to that fall. He also reported that he had lost about 40 pounds in the last three months. He does see Dr. Sanchez Bazzi in [place] as his primary care physician. 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 There were no complaints of chest pain or shortness of breath. He had some dysuria and does have a history of a partial nephrectomy in the past. He had some complaints of some burning in his stomach, especially with eating or drinking. He said his appetite has been very poor over the last 4 to 5 months. He reports that he drinks 2 to 3 alcoholic beverages daily. In the Emergency Room, he was found to have a normal white count at 6 with a hemoglobin of 12 and hematocrit of 34.9. Sodium 138, potassium 2.4, chloride 94, creatinine 1.93. His normal creatinine is about 1. Magnesium 1.3, calcium 9.5. Total bilirubin 6.7, AST 62. All other liver enzymes were within normal limits. Cardiac enzymes were within normal limits. BNP was greater than 5000. There was no noted history of congestive heart failure. His UA was positive for a urinary tract infection. He was given fluids in the Emergency Room as well as potassium and magnesium replacement. Urine cultures and blood cultures were done. He was started on Rocephin. Chest x-ray shows mild enlargement of the cardiac silhouette with no pulmonary vascular congestion. Head CT showed no acute intracranial abnormality. He had age-related chronic involutional changes. His lumbar spine and thoracic spine were negative for fractures. He was admitted to the hospital. The patient reported he was extremely depressed and he was started on Celexa 20 mg daily. HOSPITAL COURSE: Over his hospital course his WBCs did get slightly low down to 3.8 but stabilized to 4.8. His hemoglobin and hematocrit was stable at 11.6 and 30.9. His creatinine improved to his baseline of 1.2, his baseline is 1 to 1.1. His potassium after supplementation improved to 3.6. Magnesium improved to 1.8, it did decrease back down to 1.4 and it was replaced. Vitamin B12 was 402. He was given p.r.n. Ativan for possible alcohol withdrawals, although there were none reported. Final urine cultures show Proteus mirabilis. It is sensitive to Bactrim which he will be discharged home on. One of three blood cultures was positive. It was one of his aerobic bottles and it showed a bacillus species that was not B. anthresis. The susceptibilities not routinely performed and/or clinical and laboratory standards institute has established no criteria for susceptibilities. Due to his weight loss he had a chest, abdominal and pelvic CT. CT of the chest showed pleural and pulmonary fibrotic changes, no acute process. CT of the abdomen showed no acute upper abdominal processes. CT of the pelvis has no acute pelvic processes. He was to be discharged yesterday, but his daughter reported that his home had a very bad bed bug infestation and they had to clean it, remove the furniture and have it sprayed by an car mover. He was held an extra day in the hospital. He has continued to be stable and will be discharged home today in stable condition. DISCHARGE PLAN: The patient will be discharged home in stable condition. He is to resume his previous activity. He is to have close followup with his primary care physician, Dr. Sanchez Bazzi. I have continued his Celexa. He will be sent home on Celexa as well as 7 days of Bactrim. He is to return to the hospital or followup with his primary care physician, Dr. Bazzi, for any problems or complications. DISCHARGEE MEDICATIONS: 1. Hydrochlorothiazide. 2. Flax seed oil. 3. Allopurinol. 4. Ranitidine. 5. Metoprolol. 6. Levothyroxine. 7. Xalatan ophthalmic drops. 8. Simbrinza ophthalmic drops. 9. Citalopram. 10. Bactrim . #[id number] [facility]
== END 2018-03-19 18:00 | disposition home health service (06) | DRG 683 ==
LOC: ER 14:46 → MS 19:25
PROVIDERS: ADMIT Nurse Practitioner Acute Care; ATTEND Nurse Practitioner Acute Care
PROC: BW2 Imaging, Anatomical Regions, Computerized Tomography (CT Scan) (ICD-10-PCS; principal; 2018-03-16)
DX: N17.9 Acute kidney failure, unspecified (principal); N39.0 Urinary tract infection, site not specified; R78.81 Bacteremia; B96.4 Proteus (mirabilis) (morganii) as the cause of diseases classified elsewhere; E86.0 Dehydration; K29.20 Alcoholic gastritis without bleeding; F10.10 Alcohol abuse, uncomplicated; F32.9 Major depressive disorder, single episode, unspecified; R63.4 Abnormal weight loss; I25.10 Atherosclerotic heart disease of native coronary artery without angina pectoris; J44.9 Chronic obstructive pulmonary disease, unspecified; R29.6 Repeated falls; I10 Essential (primary) hypertension; K21.9 Gastro-esophageal reflux disease without esophagitis; E03.9 Hypothyroidism, unspecified; S30.810A Abrasion of lower back and pelvis, initial encounter; W01.0XXA Fall on same level from slipping, tripping and stumbling without subsequent striking against object, initial encounter; E87.6 Hypokalemia; E83.42 Hypomagnesemia; S30.0XXA Contusion of lower back and pelvis, initial encounter; Y92.009 Unspecified place in unspecified non-institutional (private) residence as the place of occurrence of the external cause; Z59.1 Inadequate housing; Z88.7 Allergy status to serum and vaccine; Z95.1 Presence of aortocoronary bypass graft; Z95.0 Presence of cardiac pacemaker; Z87.891 Personal history of nicotine dependence; Z68.22 Body mass index [BMI] 22.0-22.9, adult

== ENCOUNTER → 2019-09-28 | Outpatient (CLI) | payer MEDICARE, OTHER | LOC: BFHH 16:20 | PROVIDERS: ATTEND Family Medicine | DX: I11.0 Hypertensive heart disease with heart failure (principal); E03.9 Hypothyroidism, unspecified; I50.812 Chronic right heart failure; I48.19 Other persistent atrial fibrillation; F10.10 Alcohol abuse, uncomplicated; Z85.528 Personal history of other malignant neoplasm of kidney; E43 Unspecified severe protein-calorie malnutrition ==

== ENCOUNTER 2020-08-21 17:47 | Emergency (ER) | payer MEDICARE, OTHER ==
--- NOTE | 2020-08-21 18:33 | RAD ---
EXAM: XR Chest, 1 View CLINICAL HISTORY: The patient is 80 years old and is Male; CHEST PAIN TECHNIQUE: Single view of the chest. COMPARISON: March 14, 2018. FINDINGS: Lungs: Left lower lobe consolidation. No pulmonary vascular congestion. Pleural space: No pneumothorax. No significant pleural fluid. Heart: The cardiac silhouette is enlarged versus artifact of AP technique. Mediastinum: Unremarkable. Bones/joints: Sternal closure wires. No acute fracture identified. Upper abdomen: No free air in the visualized upper abdomen. Other findings: Left-sided ICD/pacer. IMPRESSION: 1. Left lower lobe consolidation. Correlate clinically for pneumonia/infection. 2. Left-sided ICD/pacer. Electronically signed by: Meri Tapia MD 08/21/2020 6:31 PM [employer]
[2020-08-21] MEDS ORDERED: MAGNESIUM SULFATE INJ 1 GM in SODIUM CHLORIDE 0.9% 100ML 100 ML IVPB ONE (19:04)
[2020-08-21] MEDS ORDERED: KCL 20MEQ/WATER FOR INJ 100ML 100 ML IVPB ONE (21:05)
[2020-08-21] MEDS ORDERED: KCL 20MEQ/0.45% NS 1,000 ML IVS PRN (21:09)
[2020-08-21] MEDS ORDERED: AMIODARONE IV (LOAD) 150 MG in DEXTROSE 5% 100ML 100 ML IVPB ONE (21:20)
[2020-08-21] MEDS ORDERED: AMIODARONE IV (MAINT) 900 MG in DEXTROSE 5% (AVIVA) 500ML 500 ML IVPB SCH (21:30)
[2020-08-21] MEDS ORDERED: cefTRIAXone SODIUM 2 GM in SODIUM CHL 0.9% 100ML MINI-BAG 100 ML IVPB ONE (21:38)
[2020-08-21] MEDS ORDERED: LACTATED RINGERS 1,000 ML IVS ONE ×2 (21:38→21:39)
--- NOTE | 2020-08-21 21:48 | ED.PDOC ---
History of Present Illness - General Source: patient, RN notes reviewed, Vital Signs reviewed, EMS notes reviewed, family, RN/MD, EMS - History of Present Illness Initial Comments: PATIENT PRESENTS C/O ELECTRICAL FEELING IN HIS CHEST, APPARENTLY MULTIPLE TIMES, EMS REPORTS NO ARRHYTHMIA IN ROUTE, PATENT REPORTS SEVERE PROGRESSIVE WEAKNESS X SEVERAL WEEKS, DENIES FEVER OR OTHER SYMPTOMS. HE LIVES ALONE. Timing/Duration: 1 week Severity/Quality: severe Location: central Chest Pain Radiation: no radiation Activities at Onset: none Prior Chest Pain/Cardiac Workup: other - PRIOR HEART ATTACK AND CABG. Improving Factors: nothing Worsening Factors: nothing Nitro Today/Relief: no nitro taken today <Albert Lund - Last Filed: 08/22/20 07:08> <Phil Mancia - Last Filed: 08/22/20 07:53> - General Chief Complaint: Chest Pain/[place] Stated Complaint: electrical feeling in chest Time Seen by Provider: 08/21/20 17:59 - History of Present Illness Allergies/Adverse Reactions: Allergies Tetanus Immune Globulin [From Tet-Conn G] Allergy (Verified 03/14/18 20:52) High fever and swelling at injection site. Home Medications: Ambulatory Orders Allopurinol 300 mg PO DAILY 03/14/18 Flaxseed (Linseed) [Flax Seed Oil 1000 mg] 1 cap PO DAILY 03/14/18 Hydrochlorothiazide 25 mg PO DAILY 03/14/18 Levothyroxine Sodium [Synthroid] 100 mcg PO DAILY 03/15/18 Metoprolol Tartrate 25 mg PO BID 03/15/18 Ranitidine HCl [Ranitidine Hydrochloride] 150 mg PO BID 03/15/18 Brinzolamide-Brimonidine Tartr [Simbrinza 1-0.2 %] 1 drop OPHTH 0730,1200,1500 03/17/18 Latanoprost 0.005% Ophth [Xalatan 0.005% Ophthalmic Drops] 1 drop BOTH_EYES BEDTIME 03/17/18 Citalopram Hydrobromide [Celexa] 20 mg PO DAILY #30 tab 03/18/18 Sulfa/Trimeth 800/160 (Ds) Tab [Bactrim DS] 1 tablet PO BID #14 tab 03/18/18 Review of Systems - Review of Systems Constitutional: States: no symptoms reported EENTM: States: no symptoms reported Respiratory: States: no symptoms reported Cardiology: States: no symptoms reported Gastrointestinal/Abdominal: States: no symptoms reported Genitourinary: States: no symptoms reported Musculoskeletal: States: no symptoms reported Skin: States: no symptoms reported Neurological: States: no symptoms reported Endocrine: States: no symptoms reported Hematologic/Lymphatic: States: no symptoms reported <AshelyAlbert Stroudne - Last Filed: 08/22/20 07:08> Past Medical History (General) - Patient Medical History Hx Seizures: No Hx Stroke: No Hx Asthma: No Hx of COPD: Yes Hx Congestive Heart Failure: No Hx Pacemaker: Yes Hx Hypertension: Yes Hx Diabetes: No Hx MRSA: No Hx Other - free text: HISTORY ALSO OF ASCAD, S/P CABG, DEPRESSION, ALCOHOL ABUSE, COPD, CHRONIC MALNURISHMENT, CHRONIC WEIGHT LOSS DUE TO ALCOHOL ABUSE AND DEPRESSION. Surgical History: angioplasty, coronary bypass surgery - Vaccination History Hx Tetanus, Diphtheria Vaccination: - allergic - Social History Hx Alcohol Use: Yes Hx Substance Use: No Hx Physical Abuse: No Hx Emotional Abuse: No <AshelyAlbert Yakov - Last Filed: 08/22/20 07:08> Family Medical History - Family History Mother Family History: No Known Living Status: Cause of : Cardiac problems Hx Family Asthma: No Hx Family Congestive Heart Failure: No Hx Family Hypertension: Yes Hx Family Stroke: No Hx Cardiac Disease: Yes Hx Family Diabetes: No Hx Family Cancer: Yes Father Living Status: Hx Family Asthma: No Hx Family Congestive Heart Failure: Yes Hx Family Hypertension: No Hx Family Stroke: No Hx Cardiac Disease: Yes Hx Family Diabetes: No Hx Family Cancer: Yes <DeshlerAlbert Yakov - Last Filed: 08/22/20 07:08> Physical Exam - Physical Exam General Appearance: Emaciated, Lethargic, Ill Appearing, Unkempt Eyes, Ears, Nose, Throat Exam: PERRL/EOMI, normal ENT inspection, TMs normal, pharynx normal Neck: non-tender, full range of motion, supple, normal inspection Respiratory: chest non-tender, lungs clear, normal breath sounds, no respiratory distress Cardiovascular/Chest: normal peripheral pulses, regular rate, rhythm, no edema, no gallop Peripheral Pulses: radial,right: 2+, radial,left: 2+, dorsalis pedis,right: 2+, dorsalis pedis,left: 2+ Gastrointestinal/Abdominal: normal bowel sounds, non tender, soft, no organomegaly, no pulsatile mass, abnormal bowel sounds Extremity: normal range of motion, no pedal edema Neurologic: no motor/sensory deficits, normal mood/affect, oriented x 3 Skin Exam: normal color, warm/dry Lymphatic: no adenopathy <Albert Lund - Last Filed: 08/22/20 07:08> Progress - Progress Progress: 08/21/20 21:50 NOTED TO HAVE PROLONGED EPISODE OF VENTRICULAR TACHYCARDIA IN THE ED, LIKELY 10- 15 BEATS, WITH PATTERN THAT APPEARED TO BE TARSADES. TACHYCARDIA TERMINATED WITH DEFIB BY PATIENTS IMPLANTED DEFIB. DISCUSSED FINDING WITH PATIENT'S DAUGHTER AND HIS GENERAL OPHTHALMOLOGIST DR OROSCO IN [place]. SUGGESTION BY DR OROSCO WAS [facility] IN [place]. WILL TRY THERE FIRST. THIS IS IN THE MIDDLE OF THE COVID PANDEMIC AND TRANSFERS ARE VERY DIFFICULT. THIS PATIENT IS COVID-19 NEGATIVE AT THIS TIME. 08/22/20 00:20 EXTENSIVE PHONE CALLS WHERE MADE THROUGHOUT THE NIGHT AND TO THROUGHOUT THE STAT E TO FIND AN ICU BED FOR THIS PATIENT. CASE WAS PRESENTED APPROXIMATELY 20 TIMES TO TRANSFER CENTERS, SOME HOSPITALS EVEN JUST RESPONDED THAT THE HAD NO ICU BEDS WITHOUT REQUIRING A PROLONGED PRESENTATION TO GIVE A NEGATIVE ANSWER. . 08/22/20 00:20 08/22/20 06:56 DR WATSON WILL BE ASSUMING CARE. I HAVE UPDATED THE PATIENT ON OUR PROGRESS WITH HIS TRANSFUSION. HE HAS BEEN GIVEN AN OPPORTUNITY TO ANSWER QUESTIONS. HIS DAUGHTER WAS UPDATED VIA THE NURSING STAFF. PATIENT HAVING SOME WHEEZING AND COUGH THIS MORNING SO WAS GIVE A NEB TREATMENT WITH ATROVENT THEN ALBUTEROL. REPEAT MAG AND BMP SHOWS SLIGHT INTERVAL IMPROVEMENT. WILL BOLUS WITH ADDITIONAL MAGNESIUM AND POTASSIUM. <Albert Lund - Last Filed: 08/22/20 07:08> - Progress Progress: 08/22/20 07:50 Patient was received in handoff at 0700 hrs. from the off going physician, Dr. Lund. And report I received that patient had extended episodes of V. tach wh ich were terminated with defibrillation from his internal defibrillator. Additionally patient had pneumonia. Patient was treated with an amiodarone drip and IV Rocephin for his pneumonia. In discussions with patient's fitter type bar and segment at [place], they recommended transfer to a center with [facility]. We were unsuccessful last night and finding placement for this patient. This a.m., I spoke with Dr. Medina at [facility], the on-call fitter type bar and segment who accepts patient for evaluation. Recommends Lovenox subcu 1 maya per cake and aspirin. Those have been provided to the patient. Plan on transfer. Patient is stable at this point time. <Phil Mancia - Last Filed: 08/22/20 07:53> Departure - Departure Time of Disposition: 00:19 <Albert Lund - Last Filed: 08/22/20 07:08> - Departure Diet: resume usual diet Activity: as per physical therapy <Phil Mancia - Last Filed: 08/22/20 07:53> - Departure Clinical Impression: Ventricular tachycardia (paroxysmal), Hypomagnesemia, Hypokalemia, Defibrillator discharge Disposition: Transfer to Hospital Condition: Fair Departure Forms: ED Discharge - Pt. Copy, Patient Portal Self Enrollment Instructions: DI for Chest Pain Referrals: HERB GUZMAN [Primary Care Provider] - 1-2 Weeks Home Medications: Ambulatory Orders Allopurinol 300 mg PO DAILY 03/14/18 Flaxseed (Linseed) [Flax Seed Oil 1000 mg] 1 cap PO DAILY 03/14/18 Hydrochlorothiazide 25 mg PO DAILY 03/14/18 Levothyroxine Sodium [Synthroid] 100 mcg PO DAILY 03/15/18 Metoprolol Tartrate 25 mg PO BID 03/15/18 Ranitidine HCl [Ranitidine Hydrochloride] 150 mg PO BID 03/15/18 Brinzolamide-Brimonidine Tartr [Simbrinza 1-0.2 %] 1 drop OPHTH 0730,1200,1500 03/17/18 Latanoprost 0.005% Ophth [Xalatan 0.005% Ophthalmic Drops] 1 drop BOTH_EYES BEDTIME 03/17/18 Citalopram Hydrobromide [Celexa] 20 mg PO DAILY #30 tab 03/18/18 Sulfa/Trimeth 800/160 (Ds) Tab [Bactrim DS] 1 tablet PO BID #14 tab 03/18/18 Transfer to Outside Facility - Transfer Information Decision to Transfer Date: 08/22/20 Decision to Transfer Time: 07:53 Reason for Transfer: specialized care not available Accepting Facility: [facility] <Phil Mancia - Last Filed: 08/22/20 07:53>
[2020-08-22] MEDS ORDERED: AMIODARONE IV (MAINT) 900 MG in DEXTROSE 5% (AVIVA) 500ML 500 ML IVPB SCH (00:30)
[2020-08-22] MEDS ORDERED: IPRATROPIUM BROMIDE NEBS 0.5 MG/2.5 ML VIAL NEB ONE (05:18)
[2020-08-22] MEDS ORDERED: ALBUTEROL SULFATE 2.5 MG/3 ML VIAL NEB ONE (06:47)
[2020-08-22] MEDS ORDERED: methylPREDNISolone SODIUM SUC 125 MG/2 ML VIAL IV ONE (07:01)
[2020-08-22] MEDS ORDERED: ASPIRIN (CHEWABLE) 81 MG TAB PO ONE (07:49)
[2020-08-22] MEDS ORDERED: ENOXAPARIN SODIUM 60 MG/0.6 ML SYG SUBCU ONE (08:06)
[2020-08-22 08:32] VITALS: TEMP 98
[2020-08-22] MEDS ORDERED: MAGNESIUM SULFATE PREMIX 2GM 50 ML IVPB ONE (08:36)
[2020-08-22] MEDS ORDERED: MAGNESIUM SULFATE PREMIX 2GM 2 GM in PREMIX BAG 1 BAG IVPB ONE (08:37)
[2020-08-22 09:42] VITALS: BP 133/65; O2SAT 94
== END 2020-08-22 09:35 | disposition short-term general hospital (02) ==
LOC: ER 17:47
DX: I47.9 Paroxysmal tachycardia, unspecified (principal); E83.42 Hypomagnesemia; E87.6 Hypokalemia; T82.198A Other mechanical complication of other cardiac electronic device, initial encounter; R53.1 Weakness; J44.9 Chronic obstructive pulmonary disease, unspecified; F32.9 Major depressive disorder, single episode, unspecified; I25.10 Atherosclerotic heart disease of native coronary artery without angina pectoris; Z20.828 Contact with and (suspected) exposure to other viral communicable diseases; Z95.1 Presence of aortocoronary bypass graft; Z79.899 Other long term (current) drug therapy; Z88.7 Allergy status to serum and vaccine
CPT/HCPCS: 36415; 71045; 80048; 80076; 81001; 82550; 82553; 83605; 83735; 84484; 85025; 85610; 85730; 87086; 87635; 93005; 94640; J0282; J0696; J1650; J2930; J3475; J3480; J7050; J7060; J7120; J7611; J7644